=== PATIENT | male | born 1980 | race Two or more races ===

== ENCOUNTER 2017-07-24 08:44 | Emergency (ER) | payer MEDICAID ==
[~2017-07-24] VITALS: Ht 165.1 cm; Wt 113.4 kg
[2017-07-24 13:17] VITALS: BP 156/94
[2017-07-24] MEDS ORDERED: HYDROcodone-ACET 10/325MG TAB PO ONE (13:30)
== END 2017-07-24 14:03 | disposition home or self-care (01) ==
LOC: ER 08:44
DX: R51 Headache (principal); I10 Essential (primary) hypertension
CPT/HCPCS: 70450